=== PATIENT | male | born 1975 | race Caucasian/White ===

== ENCOUNTER 2017-04-03 06:00 | Day surgery (SDC) | payer BC ==
[~2017-04-03] VITALS: Ht 182.9 cm; Wt 81.7 kg
[2017-04-03 06:35] LABS: APPEARANCE CLEAR ((CLEAR)); BILIRUBIN NEGATIVE; BLOOD NEGATIVE; COLOR YELLOW ((YELLOW)); GLUCOSE (STRIP) NEGATIVE; KETONES NEGATIVE; LEUKOCYTES NEGATIVE; NITRITE NEGATIVE; PROTEIN (STRIP) NEGATIVE; SPECIFIC GRAVITY 1.023 (1.000-1.030); UCUL ADDED? NO; UROBILINOGEN 0.2 MG/DL (0.2-1.0)
[2017-04-03 06:49] LABS: HEMATOCRIT 41.9 % (38.0-50.0); HEMOGLOBIN 14.4 G/DL (12.5-16.6); MCH 30.4 PG (29.0-34.0); MCHC 34.4 G/DL (30.0-36.0); MCV 88.6 FL (86-99); PLATELET COUNT 183 K/uL (156-360); RBC DIS.WIDTH-CV 12.1 % (11.8-14.6); RBC DIS.WIDTH-SD 39.2 % (39-53); RED BLOOD COUNT 4.73 M/uL (4.00-5.50); WHITE BLOOD COUNT 11.5 K/uL (4.1-10.2)
[2017-04-03 07:26] LABS: CHLORIDE 107 MEQ/L (99-109); SODIUM 140 MEQ/L (136-147); TOTAL BILIRUBIN 0.6 MG/DL (0.0-1.0)
[2017-04-03 07:32] LABS: ALKALINE PHOSPHATASE 43 IU/L (3-129); ALT (GPT) 60 IU/L (3-49); AST (GOT) 36 IU/L (2-34); CREATININE 0.9 MG/DL (0.6-1.3); GFR ESTIMATE (CALCULATED) > 59 mL/min/ (58.99-99999); GLUCOSE 100 mg/dL (70-99); LIPASE 15 U/L (1.0-51.0); TOTAL PROTEIN 6.4 G/DL (6.4-8.3); UREA NITROGEN (BUN) 13 mg/dL (9-23)
[2017-04-03] MEDS ORDERED: MULTIVITAMIN1 EAC2 PO (10:59)
[2017-04-03 15:18] VITALS: BP 123/64
[2017-04-03 20:17] VITALS: BP 108/55
[2017-04-03 23:54] VITALS: BP 107/55
[2017-04-04 03:55] VITALS: BP 101/51
[2017-04-04 06:02] LABS: HEMATOCRIT 39.3 % (38.0-50.0); MCH 29.3 PG (29.0-34.0); MCHC 33.1 G/DL (30.0-36.0); MCV 88.5 FL (86-99); PLATELET COUNT 192 K/uL (156-360); RBC DIS.WIDTH-CV 11.9 % (11.8-14.6); RBC DIS.WIDTH-SD 38.9 % (39-53); RED BLOOD COUNT 4.44 M/uL (4.00-5.50); WHITE BLOOD COUNT 12.5 K/uL (4.1-10.2)
[2017-04-04 07:30] VITALS: BP 120/57
[2017-04-04] MEDS ORDERED: COLACE100 MG PO (08:27)
[2017-04-04] MEDS ORDERED: PERCOCET 5/31 TABLET PO (08:27)
== END 2017-04-04 10:43 | disposition home or self-care (01) ==
LOC: EME 06:00 → SDC 12:55 → 2SOUTH 13:45 → ENRESERV 14:14 → 2EASTP 15:08
PROVIDERS: Surgery
PROC: 0DTJ4ZZ Resection of Appendix, Percutaneous Endoscopic Approach (ICD-10-PCS; principal; 2017-04-03)
DX: K35.80 Unspecified acute appendicitis (principal); K66.0 Peritoneal adhesions (postprocedural) (postinfection); E78.5 Hyperlipidemia, unspecified; M25.511 Pain in right shoulder; Z82.49 Family history of ischemic heart disease and other diseases of the circulatory system; Z83.3 Family history of diabetes mellitus
CPT/HCPCS: 74177; 80053; 81003; 83690; 85027; 88304; 99281; 99285; G0378; J0131; J0330; J1100; J1170; J1885; J2270; J2405; J2543; J2710; J3010; J7030; J7050

== ENCOUNTER → 2017-05-02 | Outpatient (CLI) | payer BC ==
[~2017-05-02] VITALS: Ht 182.9 cm; Wt 81.7 kg
[~2017-05-02] MED LIST: COLACE100 MG PO; MULTIVITAMIN1 EAC2 PO; PERCOCET 5/31 TABLET PO
== END | disposition home or self-care (01) ==
LOC: AMB 08:00
PROC: 0DJD8ZZ Inspection of Lower Intestinal Tract, Via Natural or Artificial Opening Endoscopic (ICD-10-PCS; principal; 2017-05-02)
DX: K64.8 Other hemorrhoids (principal); R10.9 Unspecified abdominal pain; K66.0 Peritoneal adhesions (postprocedural) (postinfection)
CPT/HCPCS: J3010